=== PATIENT | female | born 1985 | race Caucasian/White ===

== ENCOUNTER 2016-08-22 21:40 | Emergency (ER) | payer OTHER, MEDICARE ==
[2016-08-22] MEDS ORDERED: KETOROLAC 60 MG/2 ML VIAL IM ONE (23:57)
== END 2016-08-23 00:18 | disposition home or self-care (01) ==
LOC: FASTR 21:40
DX: M79.641 Pain in right hand (principal)
CPT/HCPCS: 96372

== ENCOUNTER 2016-08-25 09:44 | Emergency (ER) | payer MEDICARE, OTHER ==
[2016-08-25] MEDS ORDERED: OPTIRAY 350 100 ML VIAL HMH IV ONE (09:45)
[2016-08-25] MEDS ORDERED: ONDANSETRON 4 MG VIAL ONE (10:17)
[2016-08-25] MEDS ORDERED: MORPHINE 4 MG/ML SYR ONE (10:18)
[2016-08-25] MEDS ORDERED: SODIUM CHLORIDE 0.9% 1,000 ML ONE (10:18)
[2016-08-25] MEDS ORDERED: DILAUDID 1 MG/ML AMP ONE (12:40)
== END 2016-08-25 13:57 | disposition home or self-care (01) ==
LOC: ER 09:44
DX: R10.12 Left upper quadrant pain (principal)
CPT/HCPCS: 36415; 74177; 80053; 83690; 84703; 85025; 86677; 96361; 96374; 96375; 99284; J1170; J2270; J2405; Q9967

== ENCOUNTER 2016-09-02 17:16 | Emergency (ER) | payer MEDICARE, OTHER ==
[2016-09-02] MEDS ORDERED: DILAUDID 1 MG/ML AMP ONE (18:20)
[2016-09-02] MEDS ORDERED: ONDANSETRON 4 MG VIAL ONE (18:20)
[2016-09-02] MEDS ORDERED: SODIUM CHLORIDE 0.9% 1,000 ML ONE ×2 (18:20→19:41)
[2016-09-02] MEDS ORDERED: DIPHENHYDRAMINE 50 MG/ML VIAL ONE (19:40)
[2016-09-02] MEDS ORDERED: KETOROLAC 30 MG/ML VIAL ONE (19:40)
[2016-09-02] MEDS ORDERED: PROMETHAZINE 25 MG/ML VIAL ONE (19:40)
== END 2016-09-02 21:00 | disposition home or self-care (01) ==
LOC: ER 17:16
DX: K29.00 Acute gastritis without bleeding (principal)
CPT/HCPCS: 36415; 80053; 81001; 83690; 84703; 85025; 96361; 96365; 96366; 96375; 99283; J1170; J1885; J2405; J2550